=== PATIENT | female | born 1965 | race Caucasian/White ===

== ENCOUNTER 2017-10-12 19:31 | Emergency (ER) | payer BC ==
[~2017-10-12] VITALS: Ht 157.5 cm; Wt 77.7 kg
[2017-10-12 19:57] LABS: HEMOGLOBIN 16.4 G/DL (11.9-15.5); MCH 31.1 PG (29.0-34.0); MCHC 35.7 G/DL (30.0-36.0); MCV 87.1 FL (83-99); PLATELET COUNT 294 K/uL (156-360); RBC DIS.WIDTH-CV 12.7 % (11.8-14.6); RBC DIS.WIDTH-SD 40.3 % (39-53); RED BLOOD COUNT 5.28 M/uL (3.80-5.20); WHITE BLOOD COUNT 20.5 K/uL (4.1-10.2)
[2017-10-12 20:03] LABS: APPEARANCE SL.HAZY ((CLEAR)); BILIRUBIN NEGATIVE; BLOOD MODERATE; COLOR YELLOW ((YELLOW)); GLUCOSE (STRIP) NEGATIVE; KETONES NEGATIVE; LEUKOCYTES NEGATIVE; NITRITE NEGATIVE; PROTEIN (STRIP) NEGATIVE; SPECIFIC GRAVITY 1.023 (1.000-1.030); UROBILINOGEN 0.2 MG/DL (0.2-1.0)
[2017-10-12 20:07] LABS: BACTERIA NONE SEEN /HPF; CALCIUM OXALATE CRYSTALS 3+ /HPF; EPITHELIAL CELLS 3+ /HPF; MUCUS TRACE /LPF; RED BLOOD CELLS 0-5 /HPF (0-5); UCUL ADDED? NO; WHITE BLOOD CELLS 0-5 /HPF (0-5)
[2017-10-12 20:15] LABS: ALBUMIN 4.2 G/DL (3.2-4.8); CHLORIDE 104 MEQ/L (99-109); POTASSIUM 4.4 MEQ/L (3.7-5.4); SODIUM 137 MEQ/L (136-147); TOTAL BILIRUBIN 0.4 MG/DL (0.0-1.0)
[2017-10-12 20:21] LABS: ALKALINE PHOSPHATASE 47 IU/L (3-129); ALT (GPT) 21 IU/L (3-49); AST (GOT) 15 IU/L (2-34); CREATININE 0.7 MG/DL (0.6-1.3); GFR ESTIMATE (CALCULATED) > 59 mL/min/; GLUCOSE 138 mg/dL (70-99); TOTAL PROTEIN 7.8 G/DL (6.4-8.3); UREA NITROGEN (BUN) 16 mg/dL (9-23)
[2017-10-12 20:25] LABS: QUANTITATIVE HCG < 4.0 MIU/ML
[2017-10-12 20:52] LABS: LIPASE 29 U/L (1.0-51.0)
[2017-10-12] MEDS ORDERED: CIPRO500 MG PO (22:54)
[2017-10-12] MEDS ORDERED: FLAGYL500 MG PO (22:54)
[2017-10-12] MEDS ORDERED: BENTYL10 MG PO (22:54)
[2017-10-12] MEDS ORDERED: ZOFRAN4 MG PO (23:37)
[2017-10-12 23:48] VITALS: BP 138/63
== END 2017-10-12 23:52 | disposition home or self-care (01) ==
LOC: EME 19:31
DX: K52.9 Noninfective gastroenteritis and colitis, unspecified (principal); E78.5 Hyperlipidemia, unspecified; E11.9 Type 2 diabetes mellitus without complications; F17.200 Nicotine dependence, unspecified, uncomplicated; Z88.0 Allergy status to penicillin
CPT/HCPCS: 74177; 80053; 81003; 83690; 84702; 85027; 99281; 99285; J0744; J2405; J3010; J7030; S0028; S0030